=== PATIENT | female | born 1975 | race Caucasian/White ===

== ENCOUNTER 2016-07-25 06:43 | Inpatient (IN) | payer OTHER ==
[~2016-07-25] VITALS: Ht 154.9 cm; Wt 127.3 kg
[~2016-07-25 06:43] MED LIST: ALPHA LIPOIC A200 MG PO; ASCORBIC ACID500 M3 PO; CHOLEST OFF450 MG PO; CINNAMON500 MG PO; COZAAR50 MG PO; GLUCOPHAGE500 MG PO; MILK THISTLE500 MG PO; ODOR FREE GARL1 EACH PO; VITAMIN E1000 UNI1 PO
[2016-07-25 07:15] LABS: POINT-OF-CARE METER ID UU14174212
[2016-07-25 07:34] VITALS: BP 141/86
[2016-07-25 08:16] VITALS: BP 122/77
[2016-07-25 11:20] LABS: POINT-OF-CARE METER ID UU13113675
[2016-07-25 12:15] VITALS: BP 126/69; BP 152/95
[2016-07-25 15:20] VITALS: BP 141/75
[2016-07-25 18:07] LABS: POINT-OF-CARE METER ID UU14162508
[2016-07-25 19:24] VITALS: BP 149/88
[2016-07-25 23:19] VITALS: BP 139/73
[2016-07-25 23:41] LABS: POINT-OF-CARE METER ID UU14162508
[2016-07-26 03:36] VITALS: BP 158/82
[2016-07-26 05:33] LABS: MCH 29.1 PG (29.0-34.0); MCV 85.7 FL (83-99); MEAN PLAT.VOLUME 9.3 uM^3 (9.5-12.4); PLATELET COUNT 325 K/uL (156-360); RBC DIS.WIDTH-CV 12.5 % (11.8-14.6); RBC DIS.WIDTH-SD 38.9 % (39-53); RED BLOOD COUNT 4.67 M/uL (3.80-5.20)
[2016-07-26 06:34] LABS: WHITE BLOOD COUNT 14.2 K/uL (4.1-10.2)
[2016-07-26 07:07] LABS: ANION GAP 10 MEQ/L (2-14); CHLORIDE 99 MEQ/L (99-109); GFR ESTIMATE (CALCULATED) > 59 mL/min/; GLUCOSE 198 mg/dL (70-99); MAGNESIUM 1.8 mg/dl (1.3-2.7); POTASSIUM 3.9 MEQ/L (3.7-5.4); SAMPLE HEMOLYSIS CHECK 0; SAMPLE ICTERIC CHECK 0; SAMPLE LIPEMIA CHECK 0; SODIUM 136 MEQ/L (136-147); UREA NITROGEN (BUN) 7 mg/dL (9-23)
[2016-07-26 08:00] VITALS: BP 153/84
[2016-07-26] MEDS ORDERED: HYDROCODON-ACE1 EAC7 PO (08:03)
[2016-07-26 11:24] VITALS: BP 176/99
[2016-07-26 11:52] LABS: POINT-OF-CARE METER ID UU14162508
[2016-07-26 19:30] LABS: POINT-OF-CARE METER ID UU14162508
== END 2016-07-26 20:05 | disposition home or self-care (01) | DRG 621 ==
LOC: 2SOUTH 06:43 → EDSTATUS 08:42 → SDC 08:42 → 2SOUTH 08:43 → 2EAST 12:10 → 2SOUTH 12:59 → 2EAST 07-26 20:05
PROVIDERS: Surgery
PROC: 0DB64Z3 Excision of Stomach, Percutaneous Endoscopic Approach, Vertical (ICD-10-PCS; principal; 2016-07-25)
DX: E66.01 Morbid (severe) obesity due to excess calories (principal); I10 Essential (primary) hypertension; E11.9 Type 2 diabetes mellitus without complications; E78.5 Hyperlipidemia, unspecified; E78.1 Pure hyperglyceridemia; K21.9 Gastro-esophageal reflux disease without esophagitis; E28.2 Polycystic ovarian syndrome; Z68.42 Body mass index [BMI] 45.0-49.9, adult
CPT/HCPCS: 80048; 82948; 83735; 84100; 85027; C9113; J0131; J0330; J0690; J1100; J1170; J1644; J1650; J1815; J2250; J2270; J2405; J2710; J2765; J3010; J3480; J7120; S0020